=== PATIENT | female | born 1955 | race Caucasian/White ===

== ENCOUNTER 2016-06-24 13:36 | Day surgery (SDC) | payer OTHER ==
[~2016-06-24] VITALS: Ht 172.7 cm; Wt 100.0 kg
[~2016-06-24 13:36] MED LIST: BUPIVACAINE/PF 0.5% ONE
[2016-06-24 14:07] VITALS: BP 127/74
[2016-06-24] MEDS ORDERED: FENTANYL PF 250 MCG/5ML ONE (14:12)
[2016-06-24] MEDS ORDERED: MIDAZOLAM 1 MG/ML, 2ML ONE (14:12)
[2016-06-24] MEDS ORDERED: LACTATED RINGERS 1,000 ML IV SCH (14:45)
[2016-06-24] MEDS ORDERED: FLUOXETINE (15:18)
[2016-06-24] MEDS ORDERED: CEPH-368 PO (15:18)
[2016-06-24] MEDS ORDERED: RANI300C PO (15:18)
[2016-06-24] MEDS ORDERED: ALBUTEROL (15:18)
[2016-06-24] MEDS ORDERED: ADVAIR (15:18)
[2016-06-24] MEDS ORDERED: OXYC-302 PO (15:18)
[2016-06-24] MEDS ORDERED: HYDR50CA PO (15:18)
[2016-06-24] MEDS ORDERED: AMLO5TAB2 PO (15:18)
[2016-06-24] MEDS ORDERED: SPIRIVA (15:18)
[2016-06-24] MEDS ORDERED: NAPR550T3 PO (15:18)
[2016-06-24] MEDS ORDERED: ONDANSETRON 2MG/ML, 2ML ONE (15:26)
[2016-06-24] MEDS ORDERED: PROPOFOL 10 MG/ML, 20ML ONE (15:26)
[2016-06-24] MEDS ORDERED: SUCCINYLCHOLINE 20 MG/ML, 10ML ONE (15:26)
[2016-06-24] MEDS ORDERED: PHENYLEPHRINE 10 MG/ML ONE (15:26)
[2016-06-24] MEDS ORDERED: DEXAMETHASONE 4 MG/ML, 1ML ONE (15:26)
[2016-06-24 15:27] LABS: BLOOD UREA NITROGEN 19 mg/dL (7-18)
[2016-06-24 15:30] LABS: ASPARTATE AMINO TRANSFERASE 16 U/L (15-37)
[2016-06-24] MEDS ORDERED: CLINDAMYCIN 150 MG/ML, 6ML ONE (15:38)
[2016-06-24] MEDS ORDERED: LABETALOL 5MG/ML, 20ML IV PRN (17:00)
[2016-06-24] MEDS ORDERED: hydrALAzine 20 MG/ML, 1ML IV PRN (17:00)
[2016-06-24] MEDS ORDERED: ALBUTEROL/IPRATROPIUM 2.5MG/0.5MG, 3 ML NPPB PRN (17:00)
[2016-06-24] MEDS ORDERED: FENTANYL PF 100 MCG/2ML IV PRN (17:00)
[2016-06-24] MEDS ORDERED: OXYcodone 5 MG/5 ML ORAL.SOL UDC ONE (17:00)
[2016-06-24] MEDS ORDERED: MEPERIDINE/PF 25MG/0.5ML IVPush PRN (17:00)
[2016-06-24] MEDS ORDERED: PROMETHAZINE 25 MG/ML, 1ML IV PRN (17:00)
[2016-06-24] MEDS ORDERED: MIDAZOLAM 1 MG/ML, 2ML IV PRN (17:00)
[2016-06-24] MEDS ORDERED: HYDROmorphone 1 MG/ML, 1ML IV PRN (17:00)
[2016-06-24] MEDS ORDERED: OXYcodone 5 MG/5 ML ORAL.SOL UDC PO PRN (17:00)
[2016-06-24] MEDS ORDERED: ACETAMINOPHEN 325 MG TABLET PO PRN (17:00)
[2016-06-24] MEDS ORDERED: ONDANSETRON 2MG/ML, 2ML IVPush PRN (17:00)
[2016-06-24] MEDS ORDERED: ALBUTEROL SULFATE 2.5 MG/3 ML ONE (17:14)
== END 2016-06-24 18:20 | disposition home or self-care (01) ==
LOC: OR 13:36
PROVIDERS: ATTEND Orthopaedic Surgery
DX: M14.672 Charcot's joint, left ankle and foot (principal); L97.529 Non-pressure chronic ulcer of other part of left foot with unspecified severity; E11.9 Type 2 diabetes mellitus without complications
CPT/HCPCS: 27685; 28104; 36415; 80053; 87070; 87075; 87102; 87116; 87176; 87205; 87206; 93005; J0330; J1100; J2250; J2370; J2405; J2704; J3010; J3490; J7120; J7620